=== PATIENT | female | born 1960 | race Caucasian/White ===

== ENCOUNTER 2018-08-02 15:58 | Outpatient (CLI) | payer BC, SELFPAY ==
[2018-08-06 10:23] LABS: Anaplasma phagocytophilum Negative (Negative); B. miyamotoi PCR Negative (Negative); Babesia divergens/MO-1 Negative (Negative); Babesia duncani Negative (Negative); Babesia microti Negative (Negative); Ehrlichia chaffeensis Negative (Negative); Ehrlichia ewingii/canis Negative (Negative); Ehrlichia muris eauclairensis Negative (Negative)
[2018-08-06 13:05] LABS: Lyme Ab w Rflx to Lyme Confirm Negative
== END 2018-08-02 16:18 ==
PROVIDERS: Visit Provider Otolaryngology Otolaryngology/Facial Plastic Surgery
DX: H81.12 Benign paroxysmal vertigo, left ear (principal); D72.819 Decreased white blood cell count, unspecified
CPT/HCPCS: 36415; 86618; 87798

== ENCOUNTER 2018-09-10 11:39 | Outpatient (REF) | payer BC, SELFPAY ==
[2018-09-10 14:59] LABS: Total Volume 1050 ml
[2018-09-10 15:00] LABS: Creatinine,24hr Ur 0.99 g/24hr (0.60-1.80); Creatinine,Urine 98.61 mg/dL
[2018-09-11 09:02] LABS: Calcium Urine 11.8 mg/dl; Calcium Urine 24 hr 124 mg/24hr (100-300)
== END 2018-09-10 11:59 ==
LOC: LBN 11:39
PROVIDERS: Visit Provider Internal Medicine Endocrinology, Diabetes & Metabolism
DX: E55.9 Vitamin D deficiency, unspecified (principal); M80.00XA Age-related osteoporosis with current pathological fracture, unspecified site, initial encounter for fracture
CPT/HCPCS: 81050; 82340; 82570

== ENCOUNTER 2018-11-23 09:14 | Outpatient (CLI) | payer BC, SELFPAY ==
[2018-11-23 10:25] LABS: Absolute Basophil Count 0.01 k/cumm (0.0-0.2); Absolute Eosinophil Count 0.07 k/cumm (0.0-0.7); Absolute Lymphocyte Count 0.96 k/cumm (1.2-3.4); Absolute Monocyte Count 0.29 k/cumm (0.11-0.7); Absolute Neutrophil Count 1.58 k/cumm (1.2-6.7); Basophils % 0.3; Eosinophils % 2.4; HCT 41.2 % (36.0-46.0); HGB 13.7 g/dL (12.0-15.5); Mean Corp. HGB Concentration 33.3 g/dL (32.0-36.0); Mean Corpuscular Hemoglobin 31.4 pg (27.0-33.0); Mean Corpuscular Volume 94.3 fL (80-95); Mean Platelet Volume 10.7 fL (8.0-11.0); Neutrophils % 54.3; Platelet Count 202 x1000/uL (130-400); RBC 4.37 m/cumm (4.00-5.20); RBC Distribution Width 12.6 % (11.7-14.6); White Blood Cell Count 2.91 k/cumm (4.4-10.8)
[2018-11-27 09:41] LABS: 25-Hydroxy D Total 50 ng/mL; 25-Hydroxy D2 <4.0 ng/mL; 25-Hydroxy D3 50 ng/mL
== END 2018-11-23 09:34 ==
PROVIDERS: PCP Family Medicine; Visit Provider Internal Medicine Hematology
DX: D72.819 Decreased white blood cell count, unspecified (principal); Z00.00 Encounter for general adult medical examination without abnormal findings
CPT/HCPCS: 36415; 82306; 85025

== ENCOUNTER 2018-11-29 09:12 | Outpatient (CLI) | payer BC, SELFPAY ==
[2018-11-29 09:33] LABS: Absolute Basophil Count 0.02 k/cumm (0.0-0.2); Absolute Eosinophil Count 0.06 k/cumm (0.0-0.7); Absolute Lymphocyte Count 1.16 k/cumm (1.2-3.4); Absolute Neutrophil Count 1.31 k/cumm (1.2-6.7); Basophils % 0.7; Eosinophils % 2.1; HCT 39.1 % (36.0-46.0); HGB 13.2 g/dL (12.0-15.5); Lymphocytes % 40.7; Mean Corp. HGB Concentration 33.8 g/dL (32.0-36.0); Mean Corpuscular Hemoglobin 31.5 pg (27.0-33.0); Mean Corpuscular Volume 93.3 fL (80-95); Mean Platelet Volume 10.2 fL (8.0-11.0); Monocytes % 10.5; Platelet Count 185 x1000/uL (130-400); RBC 4.19 m/cumm (4.00-5.20); RBC Distribution Width 12.7 % (11.7-14.6); White Blood Cell Count 2.85 k/cumm (4.4-10.8)
== END 2018-11-29 09:32 ==
PROVIDERS: PCP Family Medicine; Visit Provider Internal Medicine Hematology
DX: D72.819 Decreased white blood cell count, unspecified (principal)
CPT/HCPCS: 36415; 85025

== ENCOUNTER 2018-12-06 01:58 | Outpatient (CLI) | payer BC, SELFPAY ==
[2018-12-06 08:32] LABS: Absolute Basophil Count 0.02 k/cumm (0.0-0.2); Absolute Eosinophil Count 0.08 k/cumm (0.0-0.7); Absolute Lymphocyte Count 1.44 k/cumm (1.2-3.4); Absolute Monocyte Count 0.32 k/cumm (0.11-0.7); Absolute Neutrophil Count 1.56 k/cumm (1.2-6.7); Basophils % 0.6; Eosinophils % 2.3; HCT 40.1 % (36.0-46.0); HGB 13.7 g/dL (12.0-15.5); Lymphocytes % 42.1; Mean Corp. HGB Concentration 34.2 g/dL (32.0-36.0); Mean Corpuscular Hemoglobin 32.2 pg (27.0-33.0); Mean Corpuscular Volume 94.4 fL (80-95); Mean Platelet Volume 9.8 fL (8.0-11.0); Monocytes % 9.4; Neutrophils % 45.6; Platelet Count 220 x1000/uL (130-400); RBC 4.25 m/cumm (4.00-5.20); RBC Distribution Width 12.7 % (11.7-14.6); White Blood Cell Count 3.42 k/cumm (4.4-10.8)
== END 2018-12-06 02:18 ==
PROVIDERS: PCP Family Medicine; Visit Provider Internal Medicine Hematology
DX: D72.819 Decreased white blood cell count, unspecified (principal)
CPT/HCPCS: 36415; 85025

== ENCOUNTER 2018-12-11 02:20 | Outpatient (CLI) | payer BC, SELFPAY ==
[2018-12-11 08:34] LABS: Absolute Basophil Count 0.01 k/cumm (0.0-0.2); Absolute Eosinophil Count 0.09 k/cumm (0.0-0.7); Absolute Lymphocyte Count 1.42 k/cumm (1.2-3.4); Absolute Monocyte Count 0.33 k/cumm (0.11-0.7); Absolute Neutrophil Count 1.35 k/cumm (1.2-6.7); Basophils % 0.3; Eosinophils % 2.8; HCT 41.4 % (36.0-46.0); HGB 13.9 g/dL (12.0-15.5); Lymphocytes % 44.4; Mean Corp. HGB Concentration 33.6 g/dL (32.0-36.0); Mean Corpuscular Hemoglobin 31.5 pg (27.0-33.0); Mean Corpuscular Volume 93.9 fL (80-95); Mean Platelet Volume 10.1 fL (8.0-11.0); Monocytes % 10.3; Neutrophils % 42.2; Platelet Count 211 x1000/uL (130-400); RBC 4.41 m/cumm (4.00-5.20); RBC Distribution Width 12.7 % (11.7-14.6)
[2018-12-11 08:47] LABS: Diff Comment Agrees w/ Instrument; RBC Morphology Normal
== END 2018-12-11 02:40 ==
PROVIDERS: PCP Family Medicine; Visit Provider Internal Medicine Hematology
DX: D72.819 Decreased white blood cell count, unspecified (principal)
CPT/HCPCS: 36415; 85025

== ENCOUNTER 2018-12-25 02:08 | Outpatient (CLI) | payer BC, SELFPAY ==
[2018-12-25 08:31] LABS: Absolute Basophil Count 0.02 k/cumm (0.0-0.2); Absolute Lymphocyte Count 1.47 k/cumm (1.2-3.4); Absolute Monocyte Count 0.26 k/cumm (0.11-0.7); Absolute Neutrophil Count 1.25 k/cumm (1.2-6.7); Basophils % 0.6; Eosinophils % 3.2; HGB 13.7 g/dL (12.0-15.5); Lymphocytes % 47.4; Mean Corp. HGB Concentration 34.3 g/dL (32.0-36.0); Mean Corpuscular Hemoglobin 32.2 pg (27.0-33.0); Mean Corpuscular Volume 93.9 fL (80-95); Mean Platelet Volume 9.9 fL (8.0-11.0); Monocytes % 8.4; Neutrophils % 40.4; Platelet Count 216 x1000/uL (130-400); RBC 4.26 m/cumm (4.00-5.20)
[2018-12-25 08:49] LABS: Diff Comment Diff Reviewed; RBC Morphology Normal
== END 2018-12-25 02:28 ==
PROVIDERS: PCP Family Medicine; Visit Provider Internal Medicine Hematology
DX: D72.89 Other specified disorders of white blood cells (principal)
CPT/HCPCS: 36415; 85025

== ENCOUNTER 2019-01-01 02:41 | Outpatient (CLI) | payer BC, SELFPAY ==
[2019-01-01 08:57] LABS: Absolute Basophil Count 0.03 k/cumm (0.0-0.2); Absolute Eosinophil Count 0.11 k/cumm (0.0-0.7); Absolute Lymphocyte Count 1.36 k/cumm (1.2-3.4); Absolute Monocyte Count 0.29 k/cumm (0.11-0.7); Absolute Neutrophil Count 1.64 k/cumm (1.2-6.7); Basophils % 0.9; Eosinophils % 3.2; HCT 40.2 % (36.0-46.0); HGB 13.5 g/dL (12.0-15.5); Lymphocytes % 39.7; Mean Corp. HGB Concentration 33.6 g/dL (32.0-36.0); Mean Corpuscular Hemoglobin 31.6 pg (27.0-33.0); Mean Corpuscular Volume 94.1 fL (80-95); Mean Platelet Volume 10.5 fL (8.0-11.0); Monocytes % 8.5; Neutrophils % 47.7; Platelet Count 205 x1000/uL (130-400); RBC 4.27 m/cumm (4.00-5.20); RBC Distribution Width 12.6 % (11.7-14.6); White Blood Cell Count 3.43 k/cumm (4.4-10.8)
== END 2019-01-01 03:01 ==
PROVIDERS: PCP Family Medicine; Visit Provider Internal Medicine Hematology
DX: D72.819 Decreased white blood cell count, unspecified (principal)
CPT/HCPCS: 36415; 85025

== ENCOUNTER 2019-01-08 00:37 | Outpatient (CLI) | payer BC, SELFPAY ==
[2019-01-08 08:49] LABS: Absolute Basophil Count 0.02 k/cumm (0.0-0.2); Absolute Eosinophil Count 0.09 k/cumm (0.0-0.7); Absolute Lymphocyte Count 1.27 k/cumm (1.2-3.4); Absolute Monocyte Count 0.25 k/cumm (0.11-0.7); Absolute Neutrophil Count 1.39 k/cumm (1.2-6.7); Basophils % 0.7; HCT 41.1 % (36.0-46.0); HGB 13.9 g/dL (12.0-15.5); Lymphocytes % 42.1; Mean Corp. HGB Concentration 33.8 g/dL (32.0-36.0); Mean Corpuscular Hemoglobin 31.6 pg (27.0-33.0); Mean Corpuscular Volume 93.4 fL (80-95); Mean Platelet Volume 10.7 fL (8.0-11.0); Monocytes % 8.3; Neutrophils % 45.9; Platelet Count 198 x1000/uL (130-400); RBC Distribution Width 12.7 % (11.7-14.6); White Blood Cell Count 3.02 k/cumm (4.4-10.8)
[2019-01-08 09:10] LABS: Diff Comment Diff Reviewed; RBC Morphology Normal
== END 2019-01-08 00:57 ==
PROVIDERS: PCP Family Medicine; Visit Provider Internal Medicine Hematology
DX: D72.819 Decreased white blood cell count, unspecified (principal)
CPT/HCPCS: 36415; 85025

== ENCOUNTER 2019-04-23 22:08 | Outpatient (REF) | payer BC, SELFPAY ==
[2019-04-23 22:05] LABS: Abs Immature Grans 0.01 k/cumm (0.0-0.09); Absolute Basophil Count 0.02 k/cumm (0.0-0.2); Absolute Eosinophil Count 0.11 k/cumm (0.0-0.7); Absolute Lymphocyte Count 1.28 k/cumm (1.2-3.4); Absolute Monocyte Count 0.42 k/cumm (0.11-0.7); Absolute Neutrophil Count 2.35 k/cumm (1.2-6.7); Basophils % 0.5; Eosinophils % 2.6; HCT 40.5 % (36.0-46.0); HGB 13.4 g/dL (12.0-15.5); Immature Grans % 0.2; Lymphocytes % 30.5; Mean Corp. HGB Concentration 33.1 g/dL (32.0-36.0); Mean Corpuscular Hemoglobin 31.3 pg (27.0-33.0); Mean Corpuscular Volume 94.6 fL (80-95); Mean Platelet Volume 11.9 fL (8.0-11.0); Neutrophils % 56.2; Platelet Count 217 x1000/uL (130-400); RBC 4.28 m/cumm (4.00-5.20); RBC Distribution Width 12.9 % (11.7-14.6); White Blood Cell Count 4.19 k/cumm (4.4-10.8)
== END 2019-04-23 22:28 ==
LOC: NCHCN 22:08
PROVIDERS: PCP Family Medicine; Visit Provider Internal Medicine
DX: D72.819 Decreased white blood cell count, unspecified (principal); R42 Dizziness and giddiness
CPT/HCPCS: 83520; 83735; 85025

== ENCOUNTER 2019-08-06 13:38 | Outpatient (REF) | payer BC, SELFPAY ==
[2019-08-06 21:04] LABS: Absolute Basophil Count 0.02 k/cumm (0.0-0.2); Absolute Eosinophil Count 0.05 k/cumm (0.0-0.7); Absolute Lymphocyte Count 1.17 k/cumm (1.2-3.4); Absolute Neutrophil Count 1.73 k/cumm (1.2-6.7); Basophils % 0.6; Eosinophils % 1.5; HCT 39.8 % (36.0-46.0); HGB 13.4 g/dL (12.0-15.5); Lymphocytes % 35.8; Mean Corp. HGB Concentration 33.7 g/dL (32.0-36.0); Mean Corpuscular Hemoglobin 31.6 pg (27.0-33.0); Mean Corpuscular Volume 93.9 fL (80-95); Mean Platelet Volume 11.6 fL (8.0-11.0); Monocytes % 9.2; Neutrophils % 52.9; Platelet Count 214 x1000/uL (130-400); RBC 4.24 m/cumm (4.00-5.20); RBC Distribution Width 12.5 % (11.7-14.6); White Blood Cell Count 3.27 k/cumm (4.4-10.8)
== END 2019-08-06 13:58 ==
LOC: NCHCN 13:38
PROVIDERS: PCP Family Medicine; Visit Provider Internal Medicine
DX: D72.819 Decreased white blood cell count, unspecified (principal)
CPT/HCPCS: 85025

== ENCOUNTER 2019-11-25 12:18 | Outpatient (REF) | payer BC, SELFPAY ==
[2019-11-25 13:48] LABS: Absolute Basophil Count 0.01 k/cumm (0.0-0.2); Absolute Eosinophil Count 0.16 k/cumm (0.0-0.7); Absolute Lymphocyte Count 1.08 k/cumm (1.2-3.4); Absolute Monocyte Count 0.29 k/cumm (0.11-0.7); Absolute Neutrophil Count 1.64 k/cumm (1.2-6.7); Basophils % 0.3; HCT 40.5 % (36.0-46.0); HGB 13.4 g/dL (12.0-15.5); Mean Corp. HGB Concentration 33.1 g/dL (32.0-36.0); Mean Corpuscular Hemoglobin 31.1 pg (27.0-33.0); Mean Platelet Volume 11.7 fL (8.0-11.0); Monocytes % 9.1; Neutrophils % 51.6; Platelet Count 225 x1000/uL (130-400); RBC 4.31 m/cumm (4.00-5.20); RBC Distribution Width 12.6 % (11.7-14.6); White Blood Cell Count 3.18 k/cumm (4.4-10.8)
== END 2019-11-25 12:38 ==
LOC: NCHCN 12:18
PROVIDERS: PCP Family Medicine; Visit Provider Internal Medicine
DX: D72.819 Decreased white blood cell count, unspecified (principal); R53.83 Other fatigue
CPT/HCPCS: 85025

== ENCOUNTER 2020-04-29 13:15 | Outpatient (REF) | payer BC, SELFPAY ==
[2020-04-29 21:19] LABS: Absolute Basophil Count 0.01 k/cumm (0.0-0.2); Absolute Eosinophil Count 0.12 k/cumm (0.0-0.7); Absolute Lymphocyte Count 1.26 k/cumm (1.2-3.4); Absolute Monocyte Count 0.31 k/cumm (0.11-0.7); Absolute Neutrophil Count 1.52 k/cumm (1.2-6.7); Basophils % 0.3; Eosinophils % 3.7; HCT 39.6 % (36.0-46.0); HGB 13.3 g/dL (12.0-15.5); Lymphocytes % 39.1; Mean Corp. HGB Concentration 33.6 g/dL (32.0-36.0); Mean Corpuscular Hemoglobin 31.4 pg (27.0-33.0); Mean Corpuscular Volume 93.6 fL (80-95); Mean Platelet Volume 11.6 fL (8.0-11.0); Monocytes % 9.6; Neutrophils % 47.3; Platelet Count 204 x1000/uL (130-400); RBC 4.23 m/cumm (4.00-5.20); RBC Distribution Width 12.5 % (11.7-14.6); White Blood Cell Count 3.22 k/cumm (4.4-10.8)
== END 2020-04-29 13:35 ==
LOC: NCHCN 13:15
PROVIDERS: PCP Family Medicine; Visit Provider Family Medicine
DX: D72.819 Decreased white blood cell count, unspecified (principal)
CPT/HCPCS: 85025

== ENCOUNTER 2020-08-03 08:18 | Day surgery (SDC) | payer BC, SELFPAY ==
--- NOTE | 2020-08-03 06:52 | COLE_ITS ---
Date of service: 08/03/20 Time of Service: 10:06 Colonoscopy Report Date of procedure: 08/03/20 Pre-op diagnosis general: Colon Cancer Screening Post-op diagnosis procedure note: same Procedure: Colonoscopy Surgeon: Suzanne Pizarro Anesthesia proc note operative: other (General/ASA 2/Yusra Lucio, SUSANNAH) Estimated blood loss (mL): 0 Pathology: none sent Complications: None Disposition: same day Indications: The patient is here for Colonoscopy pre-op. Her last screening was in 2008 and was unremarkable. She has no family history of colon cancer. She has not had any bowel habit changes. -Discussed colonoscopy bowel prep as well as the procedure. Discussed possible complications of the procedure to include bleeding, pain, perforation, missed small lesion/polyp, sore throat, aspiration and adverse reaction to the medi cations. Questions were answered to patient?s satisfaction. No guarantees were implied or given. She expresses concerns on how Anesthesia may provoke her symptoms of Vertigo. Will request Anesthesia to call her to discuss her concerns. Prep: Miralax/Dulcolax Procedure Start Time: :40 Procedure End Time: 10:01 Retraction Time: 14 minutes Findings: Normal colon Procedure Description: After informed consent was obtained the patient was taken to the procedure room and placed in a left decubitous position. Monitors were applied and a time out was done. The patients name, date of , procedure, allergies to medications and metal in their body was reviewed. The patient was then sedated. Once sedated and comfortable a rectal exam was done. External exam was normal. Internal exam revealed a normal sphincter tone and no palpable masses. The scope was then introduced and retro-flexed. No internal hemorrhoids were identified. The scope was then advanced to the cecum without difficulty. The ileocecal valve and appendiceal orifice were identified. The prep was good. The scope was then slowly retracted over 14 minutes back into the rectum. there were no polyps and no diverticula. The scope was removed and the patient was woken up and taken back to Same day surgery in stable condition. The patient tolerated the procedure well and there were no immediate complications. Follow up: The patient should follow up in 10 years unless they develop changes in bowel habits or other new gastrointestinal complaints.
--- NOTE | 2020-08-03 06:53 | W.PM.DSUDISC ---
Discharge Plan Disposition Patient Disposition: HOME Condition: Good Discharge Details Reason For Visit: Colonoscopy Attending Provider: Suzanne Pizarro Primary Care Provider: Hetal Claudio Home Meds and New Rx's Prescriptions: Continued cholecalciferol (vitamin D3) 2,000 unit capsule 2,000 unit PO DAILY RF: 0 multivitamin [Daily Multi-Vitamin] 1 EACH tablet 1 ea PO DAILY RF: 0 Discontinued polyethylene glycol 3350 17 gram/dose powder 238 g PO ONCE Qty: 238 RF: 0 bisacodyl [Dulcolax (bisacodyl)] 5 mg tablet,delayed release (DR/EC) 5 mg PO ONCE Qty: 4 RF: 0 Discharge Instructions Additional Instructions: Findings: Normal Colonoscopy Follow up: 10 years Please call if you develop: fevers >101.5 Nausea or Vomiting Abdominal pain that is not transient DAY SURGERY UNIT POST ENDOSCOPY INSTRUCTIONS 1. Because there will be medication in your system for the next 24 hours, you may feel a little sleepy. Your coordination will be affected. Therefore: a. Do not drive or operate dangerous equipment for 24 hours. b. Do not drink alcohol beverages for 24 hours (not even beer). c. Plan to go home and rest for the day. 2. Generally there are no restrictions on your activity after a day or so has gone by, but you may feel a bit fatigued for a few days. 3 After you arrive home you may have a light meal and return to a normal diet as you can tolerate it without feeling sick to your stomach. 4. After surgery, you may feel pain or discomfort. This should be only transient, but if it persists please contact your doctor. 5. If there are any questions regarding the findings of your procedure, please feel free to contact your doctor. 6. If you are unable to contact your doctor with a problem, contact the hospital at [phone]. 7. Continue all your regular medications unless directed otherwise. I understand the above instructions and have no questions. Signature of Patient or Responsible Adult Escort Date/Time Name of Responsible Adult Escort Signature of Nurse Date/Time Activity:: Activity as Tolerated Diet:: As Tolerated Discharge Orders Discharge Orders: Discharge Order (Routine); Ordered 08/03/20 Ordered By: Suzanne Pizarro
[2020-08-03 08:37] VITALS: BP 117/79; PULSE 88; RESP 16; TEMP 36.2; O2SAT 99
[2020-08-03] MEDS: Lactated Ringers 1,000 ML 80 ML IV (09:04)
[2020-08-03 10:35] VITALS: BP 116/74; PULSE 58; RESP 16; TEMP 36.2; O2SAT 98
== END 2020-08-03 10:50 | disposition home or self-care (01) ==
PROVIDERS: PCP Family Medicine; Visit Provider Surgery
PROC: 0DJD8ZZ Inspection of Lower Intestinal Tract, Via Natural or Artificial Opening Endoscopic (ICD-10-PCS; CPT 45378; principal; 2020-08-03 09:45)
DX: Z12.11 Encounter for screening for malignant neoplasm of colon (principal)
CPT/HCPCS: 45378; J2001

== ENCOUNTER 2020-08-13 10:23 | Outpatient (REF) | payer BC, SELFPAY ==
--- NOTE | 2020-08-13 09:30 | PAPFT_PTH ---
PATIENT: Francie Mckeon LOC: [facility] U#:[id number] AGE/SX: 60/F ROOM: RE08/13/[address]: AARON Neely : 1960 BED: DIS: 08/13/2020 SPEC #: [id number] RECD: 08/13/20 12:50 STATUS: REAGAN REQ #: [id number] RASHEL: 08/13/20 09:[address]: Re Gleason DEPT: [facility] Cytology RECD BY: Annetta Gonzalez ENTERED: 08/13/20 12:50 SP TYPE: PAPFT OTHR DR: Hetal Claudio Tissues: 1 - CX/ENDOCX FOR PAP SMEARS Procedures: PAP THIN PREP/UVM Screening HPV DNA PROBE Comments: [id number]
== END 2020-08-13 10:43 ==
LOC: LBN 10:23
PROVIDERS: PCP Family Medicine; Visit Provider Nurse Practitioner Family
DX: Z12.4 Encounter for screening for malignant neoplasm of cervix (principal); Z11.51 Encounter for screening for human papillomavirus (HPV)
CPT/HCPCS: 88142; 87624

== ENCOUNTER 2021-01-13 15:06 | Outpatient (REF) | payer BC, SELFPAY ==
[2021-01-13 16:10] LABS: HCT 39.7 % (36.0-46.0); HGB 13.3 g/dL (11.2-15.7); MCH 31.5 pg (27.0-33.0); MCHC 33.5 % (32.0-36.0); MCV 94.1 fL (80-95); MPV 11.2 fL (8.0-11.0); Platelet Count 222 10^3/uL (130-400); RBC 4.22 10^6/uL (3.93-5.22); RDW 12.2 % (11.7-14.6); RDW-SD 42.4 fL; WBC 3.61 10^3/uL (4.4-10.8)
== END 2021-01-13 15:07 | disposition home or self-care (01) ==
LOC: NCHCN 15:06
PROVIDERS: PCP Family Medicine; Visit Provider Internal Medicine
DX: D72.819 Decreased white blood cell count, unspecified (principal)
CPT/HCPCS: 85027

== ENCOUNTER 2021-04-13 14:56 | Outpatient (REF) | payer BC, SELFPAY ==
[2021-04-13 14:14] LABS: Absolute Basophil Count 0.03 10^3/uL (0.0-0.2); Absolute Lymphocyte Count 1.12 10^3/uL (1.2-3.4); Eosinophils % 3.2; HCT 37.4 % (36.0-46.0); HGB 12.9 g/dL (11.2-15.7); Lymphocytes % 35.6; MCH 32.2 pg (27.0-33.0); MCHC 34.5 % (32.0-36.0); MCV 93.3 fL (80-95); MPV 11.2 fL (8.0-11.0); Monocytes % 9.5; Neutrophils % 50.7; Nucleated RBC 0 %; Platelet Count 197 10^3/uL (130-400); RBC 4.01 10^6/uL (3.93-5.22); RDW 12.9 % (11.7-14.6); RDW-SD 43.3 fL; WBC 3.15 10^3/uL (4.4-10.8)
== END 2021-04-13 14:57 | disposition home or self-care (01) ==
LOC: NCHCN 14:56
PROVIDERS: PCP Family Medicine; Visit Provider Internal Medicine
DX: D72.819 Decreased white blood cell count, unspecified (principal); R23.3 Spontaneous ecchymoses; M25.50 Pain in unspecified joint
CPT/HCPCS: 85025

== ENCOUNTER 2022-06-20 08:49 | Emergency (ER) | payer BC, SELFPAY ==
[2022-06-20 08:54] VITALS: BP 131/55; PULSE 81; RESP 14; TEMP 36.9; O2SAT 97
--- NOTE | 2022-06-20 10:00 | DI.RAD_ITS ---
Exam(s) XR FOOT LT COMPLETE EXAM: XR FOOT LT COMPLETE CLINICAL HISTORY: trauma, dorsal mid foot pain/swelling TECHNIQUE: COMPARISON: No exams were available for comparison FINDINGS: Three views were obtained. There is no evidence acute fracture or dislocation. IMPRESSION: RADIATION DOSE DELIVERED: Total DLP
--- NOTE | 2022-06-20 10:23 | ED.GENADUL_ITS ---
Discharge Plan Disposition Patient Disposition: HOME Condition: Good Discharge Details Clinical Impression: Foot injury Primary Care Provider: Hetal Claudio ED Provider: Stephanie Jiang Home Meds and New Rx's Prescriptions: Continued cholecalciferol (vitamin D3) 2,000 unit capsule 2,000 unit PO DAILY ascorbate calcium (vitamin C) 500 mg tablet 500 mg PO DAILY multivitamin [Daily Multi-Vitamin] 1 EACH tablet 1 ea PO DAILY Discharge Instructions Instructions: Foot Sprain (ED), Ankle Strain (ED) Additional Instructions: Please return immediately to the emergency department if you develop any new or worsening symptoms, if your condition does not improve as expected, or if you become otherwise concerned. It is extremely important that you call soon as possible to make an appointment to be seen in follow-up for this visit by your primary care doctor. Referrals: Hetal Claudio [Primary Care Provider] - Discharge Data Discharge Date/Time-TO BE ENTERED AT DEPARTURE: 06/20/22 11:35 Medical Decision Making Francie Varghese is a 62-year-old woman with a history of SVT, chronic leukopenia, BPPV presenting to the emergency department with left foot pain. Patient reports that yesterday she was carrying a vacuum cleaner housekeeping down her stairs, states that she lost balance and tripped, falling down approximately 5 steps. Patient reports that she twisted her left ankle in the fall. She reports that she hit her left shoulder, but has very mild pain there and full range of motion and did not come to the emergency department for evaluation of her shoulder. She states that she did not hit her head and did not lose consciousness, walked immediately after the fall. Patient reports that she has been walking well and doing fine since the fall, except that she has had mild bruising and swelling of the top of her left foot, and pain in that area when she inverts her foot. She denies other pain, numbness, weakness, skin wound. Patient reports that she was previously well and in her usual state of health, she denies fever, cough, shortness of breath, vomiting, diarrhea, rash. On exam Pt is well and non-toxic appearing. Ranging left shoulder fully without pain. TTP left dorsal foot. Concern for fx, contusion, other. Exam/hx at this time is not c/w ankle fx, maissoneuve fx, emergent shoulder injury, non- mechanical etiology of fall. Plan for foot xrays. xrays negative. As Pt reports pain in foot occurs with inversion of ankle only, plan for ankle stabilizer, outpt f/u. Pt walking about the emergency department without issue. I had a discussion with Patient regarding return to emergency department precautions, home care, and importance of outpatient follow-up. Pt verbalizes understanding of the plan and is amenable. Patient discharged to home with clear plan for outpatient follow-up. All questions were answered. Disposition decision was made weighing the risks and benefits of hospitalization versus outpatient treatment, the risk for further decompensation, and the patient's wishes. Medical Records Medical records reviewed: Yes I reviewed the patient's medical records. Imaging Data Radiologic Study: Attestation: I personally reviewed and interpreted this imaging study as follows: Radiologist's impression: EXAM:? XR FOOT LT COMPLETE CLINICAL HISTORY:? trauma, dorsal mid foot pain/swelling TECHNIQUE:? COMPARISON:? No exams were available for comparison FINDINGS: Three views were obtained.? There is no evidence acute fracture or dislocation. HPI General Mode of arrival: ambulatory . Date/Time Provider Initiated Documentation: 06/20/22 10:07 . Limitations to Documentation: no limitations . Information obtained by: patient, RN notes reviewed and old records reviewed . HPI Narrative: Francie Varghese is a 62-year-old woman with a history of SVT, chronic l eukopenia, BPPV presenting to the emergency department with left foot pain. Patient reports that yesterday she was carrying a vacuum cleaner housekeeping down her stairs, states that she lost balance and tripped, falling down approximately 5 steps. Patient reports that she twisted her left ankle in the fall. She reports that she hit her left shoulder, but has very mild pain there and full range of motion and did not come to the emergency department for evaluation of her shoulder. She states that she did not hit her head and did not lose consciousness, walked immediately after the fall. Patient reports that she has been walking well and doing fine since the fall, except that she has had mild bruising and swelling of the top of her left foot, and pain in that area when she inverts her foot. She denies other pain, numbness, weakness, skin wound. Patient reports that she was previously well and in her usual state of health, she denies fever, cough, shortness of breath, vomiting, diarrhea, rash. Related Data Home Medications Medication Instructions Recorded Confirmed multivitamin (Daily Multi-Vitamin 1 ea PO DAILY 11/25/14 06/20/22 tablet) cholecalciferol (vitamin D3) 50 2,000 unit PO DAILY 07/26/19 06/20/22 mcg (2,000 unit) capsule ascorbate calcium (vitamin C) 500 500 mg PO DAILY 09/14/21 06/20/22 mg tablet Allergies Allergy/AdvReac Type Severity Reaction Status Date / Time hay fever Allergy stuffy/itchy Uncoded 06/20/22 08:57 eyes General Stated Complaint: Orthopedic JR: 4 Review of Systems Narrative: Constitutional: denies fevers Eyes: denies eye pain ENT: denies ear pain, dental pain, sore throat Cardiovascular: denies chest pain, edema Respiratory: denies SOB, cough GI: denies abdominal pain, vomiting, diarrhea : denies flank pain MSK: denies back pain, neck pain, reports left foot pain, left shoulder pain Skin: denies rash Neuro: denies headaches, numbness, weakness PFSH All Active Problems Foot injury (Acute) Normal colonoscopy (Acute) Fatigue (Acute) SVT (supraventricular tachycardia) (Chronic) Leukopenia (Acute) Vestibular neuritis (Acute) Vertigo (Acute) 03/2019. [facility] MRI at [facility]: Normal Osteoporosis (Chronic) 2014 Lumbar T score -2.1 2018 T score - 2.3 2018 L hip -2.2, L femoral neck -3.4 No pathologic fx. Pt declines bisphosphonates. Attempting alkaline diet. Chronic leukopenia (Acute) Neg w/u. 2019 seeing Reba Palomino, dock associate in [facility]. WBC slowing increasing. Exposure to Zika virus (Acute) 2016. During trip to [place]. Normal memory function (Chronic) Ocular migraine (Chronic) BPPV (benign paroxysmal positional vertigo) (Acute) 2017. Perimenopausal vasomotor symptoms (Acute 11/25/14) Atrophy of vagina (Acute 09/16/13) Has used topical vaginal estrogen for symptom relief. Medical History Vaginal dryness, menopausal Rx with Vagifem. 12/26/16 Given info regarding Osphena vs Estring. Surgical History S/P appendectomy Family History Mother Neoplasm breast Social History Smoking/Tobacco Use Status: Never Smoking risk assessment performed?: Yes Alcohol Intake: never Drug use: Never Substance use type: does not use Household members: spouse and other Details: H-Florencio Joana Housing: house Communication Needs: None Education Level: college Do you need help understanding health information?: Never current occupation: [employer] Do you feel safe at home: Yes Do you feel safe in your relationship?: Yes Female Reproductive History Menstrual Menopause type: natural (2008) History History 1 Para 1 Hx # Term Pregnancies Multiple births Hx # Pregnancies Ectopic pregnancies AB induced Hx Number of Living Children AB spontaneous Exam Narrative Exam Narrative: Constitutional: well and dox-wddre-uycoyyosi, pleasant, conversing normally HENT: head atraumatic/normocephalic/normal inspection, mucous membranes moist Eyes: conjunctiva normal, sclera normal, pupils 3mm b/l Neck: no stridor, normal ROM, trachea midline Resp: normal work of breathing, speaking full sentences Cardio: normal rate, normal rhythm Skin: warm, dry, normal color, no rash Neuro: alert, not altered, grossly non-focal, normal tone Ext: Full painless range of motion left shoulder, left ankle without tenderness to palpation of the medial or lateral malleolus, no proximal fibula tenderness to palpation, mild ecchymosis and edema over the dorsal lateral aspect of the proximal foot without crepitus or tenderness palpation of that area, no other tenderness to palpation of the foot, full painless range of motion of the toes and flexion/extension of the ankle, pain elicited in area of skin changes with inversion of the ankle, no pain with eversion of the ankle. PT pulse intact, foot is warm and well-perfused. Opaque toenail swedish in place, however brisk cap refill of the skin of toes. Psych: normal mood, normal affect, normal behavior Course Vital Signs Vital signs: Vital Signs Temperature 36.9 C 06/20/22 08:54 Pulse 81 06/20/22 08:54 Respiratory Rate 14 06/20/22 08:54 Blood Pressure 131/55 L 06/20/22 08:54 Pulse Oximetry 97 06/20/22 08:54 Temperature 36.9 C 06/20/22 08:54 Temperature Source Temporal Artery Scan 06/20/22 08:54 Pulse 81 06/20/22 08:54 Respiratory Rate 14 06/20/22 08:54 Respiratory Effort Non-Labored 06/20/22 08:58 Blood Pressure 131/55 L 06/20/22 08:54 Blood Pressure Position Sitting 06/20/22 08:54 Pulse Oximetry 97 06/20/22 08:54 Oxygen Delivery Method Room Air 06/20/22 08:54 Oxygen Flow Rate 0 06/20/22 08:54 Pain Level 4 06/20/22 08:54
== END 2022-06-20 11:35 | disposition home or self-care (01) ==
PROVIDERS: Emergency Provider Student in an Organized Health Care Education/Training Program; PCP Family Medicine
DX: S99.822A Other specified injuries of left foot, initial encounter (principal); W10.8XXA Fall (on) (from) other stairs and steps, initial encounter
CPT/HCPCS: 29515; 99283; 73630

== ENCOUNTER 2022-09-30 18:17 | Outpatient (REF) | payer BC, SELFPAY ==
[2022-10-02 10:30] LABS: COVID-19 RT-PCR UVMMC Result Negative (Negative)
[2022-10-02 21:47] LABS: Anaplasma phagocytophilum Negative (Negative); B. miyamotoi PCR Negative (Negative); Babesia divergens/MO-1 Negative (Negative); Babesia duncani Negative (Negative); Babesia microti Negative (Negative); Ehrlichia chaffeensis Negative (Negative); Ehrlichia ewingii/canis Negative (Negative); Ehrlichia muris eauclairensis Negative (Negative)
[2022-10-03 10:30] LABS: Lyme Ab w Rflx to Lyme Confirm Negative (Negative)
== END 2022-09-30 18:18 | disposition home or self-care (01) ==
LOC: LBN 18:17
PROVIDERS: PCP Family Medicine; Visit Provider Physician Assistant Medical
DX: R53.83 Other fatigue (principal); Z20.822 Contact with and (suspected) exposure to COVID-19
CPT/HCPCS: 87798; U0003; 86618

== ENCOUNTER 2023-02-10 01:30 | Outpatient (CLI) | payer BC, SELFPAY ==
--- NOTE | 2023-02-10 07:15 | DI.DEXA_ITS ---
Exam(s) XR DEXA BONE DENSITY W/WO OSCAR EXAM: XR DEXA BONE DENSITY W/WO OSCAR CLINICAL HISTORY: OSTEOPOROSIS, M81.0 TECHNIQUE: COMPARISON: Comparison is 05/29/2018. FINDINGS: Lateral Spine Image: Unremarkable. No compression deformities identified. Left hip: Total T-Score: -2.4. This compares to -2.2 on the prior examination. Total Z-Score: -1.2 T- and Z-scores: Findings are consistent with osteopenia. Osteoporosis is seen in the femoral neck w ith a T-score of -3.5. Lumbar Spine: Total T-Score: -1.7. This compares to -1.6 on the prior examination. Total Z-Score: 0.0 T- and Z-scores: Findings are consistent with osteopenia. Note is made of osteoporosis in the L3 chelsea tebral body with a T-score of -2.6. IMPRESSION: Osteoporosis in the left femoral neck and the lumbar spine.
== END 2023-02-10 01:50 ==
LOC: DI 01:30
PROVIDERS: PCP Family Medicine; Visit Provider Obstetrics & Gynecology Gynecology
DX: M81.0 Age-related osteoporosis without current pathological fracture (principal); M85.88 Other specified disorders of bone density and structure, other site
CPT/HCPCS: 77080

== ENCOUNTER 2023-02-10 02:04 | Outpatient (CLI) | payer BC, SELFPAY ==
[2023-02-10 09:07] LABS: HCT 40.4 % (36.0-46.0); HGB 13.5 g/dL (11.2-15.7); MCH 31.1 pg (27.0-33.0); MCHC 33.4 % (32.0-36.0); MCV 93 fL (80-95); MPV 9.3 fL (8.0-11.0); Platelet Count 258 10^3/uL (130-400); RBC 4.34 10^6/uL (3.93-5.22); RDW 12.1 % (11.7-14.6); RDW-SD 42.1 fL; WBC 3.87 10^3/uL (4.4-10.8)
[2023-02-10 10:08] LABS: Anion Gap 4.4 mmol/L (3-11); BUN 14 mg/dL (7-18); CO2 29.6 mmol/L (21.0-32.0); Calculated LDL 99 mg/dL (<100); Chloride 103 mmol/L (98-107); Cholesterol 196 mg/dL (<200); Glucose 134 mg/dL (74-106); HDL Cholesterol 88 mg/dL (40-60); Potassium 3.8 mmol/L (3.5-5.1); Sodium 137 mmol/L (136-145); Triglyceride 46 mg/dL (<150)
== END 2023-02-10 02:05 | disposition home or self-care (01) ==
LOC: LBO 02:05
PROVIDERS: PCP Family Medicine; Visit Provider Obstetrics & Gynecology Gynecology
DX: M81.0 Age-related osteoporosis without current pathological fracture (principal)
CPT/HCPCS: 36415; 80048; 80061; 85027

== ENCOUNTER 2023-03-02 01:00 | Outpatient (CLI) | payer BC, SELFPAY ==
--- NOTE | 2023-03-02 | DI.RAD_ITS ---
Exam(s) XR FOOT LT COMPLETE EXAM: XR FOOT LT COMPLETE CLINICAL HISTORY: LT TOE PAIN, M79.675, ? OMINOUS INJURY. TECHNIQUE: 2D digital imaging was performed. Three views. COMPARISON: CR XR FOOT LT COMPLETE from 06/20/2022 FINDINGS: BONES: Subacute appearing nondisplaced fracture of the distal aspect of the proximal phalanx of the 2 nd toe. No additional fractures are seen. No bony destructive lesion is seen. JOINTS: No dislocation present. Minimal degenerative changes. SOFT TISSUE: Normal. IMPRESSION: Nondisplaced fracture proximal phalanx 2nd toe which appears subacute. DATA REPOSITORY: RADIATION DOSE DELIVERED:
== END 2023-03-02 01:20 ==
LOC: DI 01:00
PROVIDERS: PCP Family Medicine; Visit Provider Family Medicine
DX: M79.675 Pain in left toe(s); S92.515A Nondisplaced fracture of proximal phalanx of left lesser toe(s), initial encounter for closed fracture
CPT/HCPCS: 73630

== ENCOUNTER 2023-08-08 10:10 | Outpatient (REF) | payer BC, SELFPAY ==
[2023-08-08 16:02] LABS: Absolute Basophil Count 0.02 10^3/uL (0.0-0.2); Absolute Eosinophil Count 0.05 10^3/uL (0.0-0.7); Absolute Lymphocyte Count 0.96 10^3/uL (1.2-3.4); Absolute Monocyte Count 0.26 10^3/uL (0.1-0.8); Absolute Neutrophil Count 1.77 10^3/uL (1.2-6.7); Basophils % 0.7; Eosinophils % 1.6; HCT 40.3 % (36.0-46.0); HGB 13.6 g/dL (11.2-15.7); Lymphocytes % 31.4; MCH 31.7 pg (27.0-33.0); MCHC 33.7 % (32.0-36.0); MCV 94 fL (80-95); MPV 10.8 fL (8.0-11.0); Monocytes % 8.5; Neutrophils % 57.8; Platelet Count 227 10^3/uL (130-400); RBC 4.29 10^6/uL (3.93-5.22); RDW 12.1 % (11.7-14.6); RDW-SD 42.3 fL; WBC 3.06 10^3/uL (4.4-10.8)
[2023-08-08 16:09] LABS: ESR 3 mm/hr (0-30)
[2023-08-08 16:32] LABS: ALT 28 U/L (14-59); AST 19 U/L (15-37); Albumin 3.9 g/dL (3.4-5.0); Alkaline Phosphatase 70 U/L (46-116); Anion Gap 8.3 mmol/L (3-11); BUN 18 mg/dL (7-18); Bilirubin, Total 0.6 mg/dL (0.2-1.0); CO2 27.7 mmol/L (21.0-32.0); CREATININE 0.9 mg/dL (0.55-1.02); Calcium 9.4 mg/dL (8.5-10.1); Chloride 102 mmol/L (98-107); Estimated GFR 71.39 (mL/min/1.73m2); Glucose 85 mg/dL (74-106); Potassium 4.3 mmol/L (3.5-5.1); Sodium 138 mmol/L (136-145); TSH (W/Ref FT4) 2.48 uIU/mL (0.36-3.74); Total Protein 6.7 g/dL (6.4-8.2)
[2023-08-10 10:27] LABS: Lyme Ab w Rflx to Lyme Confirm Negative (Negative)
[2023-08-11 16:52] LABS: Anaplasma phagocytophilum Negative (Negative); B. miyamotoi PCR Negative (Negative); Babesia divergens/MO-1 Negative (Negative); Babesia duncani Negative (Negative); Babesia microti Negative (Negative); Ehrlichia chaffeensis Negative (Negative); Ehrlichia ewingii/canis Negative (Negative); Ehrlichia muris eauclairensis Negative (Negative)
== END 2023-08-08 10:11 | disposition home or self-care (01) ==
LOC: NCHCN 10:10
PROVIDERS: PCP Family Medicine; Visit Provider Family Medicine
DX: R53.83 Other fatigue (principal); J30.2 Other seasonal allergic rhinitis
CPT/HCPCS: 80053; 85652; 87798; 84443; 85025; 86618

== ENCOUNTER 2024-01-18 11:22 | Outpatient (REF) | payer BC, SELFPAY ==
--- NOTE | 2024-01-18 11:00 | PAPFT_PTH ---
PATIENT: Francie Mckeon LOC: [facility] U#:[id number] AGE/SX: 63/F ROOM: RE01/18/[address]: Alexandra Garrett : 1960 BED: DIS: 01/18/2024 SPEC #: [id number] RECD: 01/18/24 13:25 STATUS: REAGAN REQ #: [id number] RASHEL: 01/18/24 11:[address]: Alexandra Garrett DEPT: [facility] Cytology RECD BY: Annetta Gonzalez ENTERED: 01/18/24 13:25 SP TYPE: PAPFT OTHR DR: Hetal Claudio Tissues: 1 - CX/ENDOCX FOR PAP SMEARS Procedures: PAP THIN PREP/UVM Screening HPV DNA PROBE Comments: [id number]
== END 2024-01-18 11:23 | disposition home or self-care (01) ==
LOC: LBN 11:22
PROVIDERS: PCP Family Medicine; Visit Provider Obstetrics & Gynecology Gynecology
DX: Z12.4 Encounter for screening for malignant neoplasm of cervix (principal); Z11.51 Encounter for screening for human papillomavirus (HPV)
CPT/HCPCS: 88142; 87624

== ENCOUNTER 2024-06-28 18:53 | Outpatient (REF) | payer MEDICARE, SELFPAY ==
[2024-06-26 13:59] LABS: Abs Immature Grans 0.01 10^3/uL (0.0-0.06); Absolute Basophil Count 0.03 10^3/uL (0.0-0.2); Absolute Eosinophil Count 0.06 10^3/uL (0.0-0.7); Absolute Lymphocyte Count 1.52 10^3/uL (1.2-3.4); Absolute Monocyte Count 0.35 10^3/uL (0.1-0.8); Absolute Neutrophil Count 2.49 10^3/uL (1.2-6.7); Basophils % 0.7 %; Eosinophils % 1.3 %; HCT 40.3 % (36.0-46.0); HGB 13.5 g/dL (11.2-15.7); Immature Grans % 0.2 %; Lymphocytes % 34.1 %; MCH 31.8 pg (27.0-33.0); MCHC 33.5 % (32.0-36.0); MCV 95 fL (80-95); MPV 10.4 fL (8.0-11.0); Monocytes % 7.8 %; Neutrophils % 55.9 %; Platelet Count 226 10^3/uL (130-400); RBC 4.24 10^6/uL (3.93-5.22); RDW 12.4 % (11.7-14.6); RDW-SD 43.3 fL; WBC 4.46 10^3/uL (4.4-10.8)
[2024-06-26 14:42] LABS: ALT 27 U/L (14-59); AST 19 U/L (15-37); Alkaline Phosphatase 77 U/L (46-116); Anion Gap 6.1 mmol/L (3-11); BUN 15 mg/dL (7-18); Bilirubin, Total 0.33 mg/dL (0.2-1.0); CO2 29.9 mmol/L (21.0-32.0); CREATININE 0.8 mg/dL (0.55-1.02); Calcium 9.2 mg/dL (8.5-10.1); Chloride 104 mmol/L (98-107); Estimated GFR 81.72 (mL/min/1.73m2); Glucose 95 mg/dL (74-106); Potassium 4.2 mmol/L (3.5-5.1); Sodium 140 mmol/L (136-145); TSH (W/Ref FT4) 2.55 uIU/mL (0.36-3.74); Total Protein 6.9 g/dL (6.4-8.2)
[2024-06-27 10:41] LABS: Lyme Ab w Rflx to Lyme Confirm Negative (Negative)
[2024-06-28 20:45] LABS: Anaplasma phagocytophilum Negative (Negative); B. miyamotoi PCR Negative (Negative); Babesia divergens/MO-1 Negative (Negative); Babesia duncani Negative (Negative); Babesia microti Negative (Negative); Ehrlichia chaffeensis Negative (Negative); Ehrlichia ewingii/canis Negative (Negative); Ehrlichia muris eauclairensis Negative (Negative)
== END 2024-06-28 18:54 | disposition home or self-care (01) ==
LOC: LBN 18:53
PROVIDERS: PCP Family Medicine; Visit Provider Physician Assistant Medical
DX: R41.89 Other symptoms and signs involving cognitive functions and awareness (principal)
CPT/HCPCS: 80053; 87798; 84443; 85025; 86618